=== PATIENT | female | born 1995 | race Caucasian/White ===

== ENCOUNTER 2024-01-02 07:30 | Inpatient (IN) ==
[2024-01-02] MEDS: Nicotine PATCH 21 MG/24 HR PATCH TRANSDERM SCH (09:45)
[2024-01-02] MEDS: Scopolamine 1 mg/72hr PATCH TRANSDERM SCH (12:28)
[2024-01-02] MEDS: Acetaminophen IV 1 GM/100ML 1,000 MG/100 ML BAG IV PRN (22:05)
[2024-01-03] MEDS: Metoclopramide 5 MG/ML VIAL (10 mg) IV PRN (08:52)
[2024-01-03] MEDS: NF:Linaclotide 290 mcg CAP (NF) PO SCH (09:02)
[2024-01-03 20:16] VITALS: BP 124/88
== END 2024-01-04 10:05 | disposition home or self-care (01) | DRG 756 ==
LOC: MEDTELE 07:45
PROVIDERS: ADMIT Psychiatry & Neurology Neurology; ATTEND Internal Medicine